=== PATIENT | female | born 1950 | race Caucasian/White ===

== ENCOUNTER 2019-07-04 13:57 | Outpatient (CLI) | payer BC, MEDICARE, SELFPAY ==
[2019-07-04 14:28] LABS: Alanine Aminotransferase 14 U/L (4-35); Albumin Level 4.2 g/dL (3.5-5.1); Alkaline Phosphatase 66 U/L (38-126); Amylase 117 U/L (30-110); Aspartate Amino Transferase 21 U/L (14-36); Bilirubin,Total 0.2 mg/dL (0.2-1.3)
== END 2019-07-04 13:58 | disposition home or self-care (01) ==
LOC: ANHSURGERY 14:01
PROVIDERS: PCP Internal Medicine; Visit Provider Surgery
DX: K80.10 Calculus of gallbladder with chronic cholecystitis without obstruction (principal)
CPT/HCPCS: 36415; 80076; 82150

== ENCOUNTER 2019-07-18 00:34 | Day surgery (SDC) | payer BC, MEDICARE, SELFPAY ==
[2019-06-29 16:17] VITALS: BMI 32.8
[2019-07-18] VITALS (8 sets, daily range): BP systolic 119–152; BP diastolic 48–84; PULSE 60–82; RESP 16–20; TEMP 36.2; O2SAT 100; BMI 33.3
[2019-07-18] MEDS: LACTATED RINGERS 1,000 ML 30 ML IV CONT ×2 (06:30→09:20)
--- NOTE | 2019-07-18 06:54 | PM.HPGS ---
History of Present Illness History of Present Illness Consent: Risks, benefits, and alternatives have been discussed and questions answered. Patient agrees to proceed with procedure. Chief complaint: Cholelithiasis with Cholecystitis Narrative: Khadijah Parsons is a 69 year old female who presented recently to the office for evaluation. She has been experiencing intermittent abdominal discomfort for approximately 20 years. Episodes would wake her in the chart clerk hours, would last about 20 minutes then spontaneously resolve. Recently, she has developed an increase in frequency of episodes, and now has an episode almost once a week. Pain start in mid back and between her shoulder blades, and radiates to her epigastrium. Her first attack, as mentioned, was approximately 20 years ago, and she presented to the ED then with sub sequent resolution of her symptoms. Gallstones were noted on CT that was performed at that time. She was recently admitted to on admitted to the hospital on January 09, 2019, with dizziness. At that time, she was found to be profoundly anemic with hemoccult-positive stool. Endoscopy done at that time showed gastritis and a gastric polyp, which was removed with histology consistent with Nadia's gland nodule. She had been doing well since that time; however, more recently has been increasingly fatigued, occasionally lightheaded, and short of breath with exertion. She had similar symptoms when she was admitted in December and was thought perhaps she was anemic again. She had labs drawn as an outpatient and was told to go to the emergency room on 04/14/2019 due to low hemoglobin and hematocrit. With further questioning while in the hospital, she denied any obvious blood loss and specifically denied epistaxis, hematemesis, hematuria, melena, and hematochezia. Her primary care provider has been wanting her to take some iron supplementation dating back to October of this year. However, she was unaware that she was supposed to take that and in 04/2019 had just started taking a multivitamin with iron in the last couple months. While hospitalized, she was transfused and Hgb increased to 8.6 and discharged on 04/15/2019 in good condition. She has had repeat labs at [facility] since she was discharged, but she can't recall what the results were and we do not have report for review. She has not yet followed up with her PCP, Dr. Freeman Esparza in [place], but is scheduled to see him later this month. She follows him routinely every 6 months, and at her last office visit she admits she he did perform an EKG. While in the hospital, she admitted to the PA that her only other complaint was of occasional gallbladder attacks , the last being sometime in early 04/2019. She has not had fever, chills, or sweats. No chest pain or racing heart. Other abdominal operations include a previous gastric sleeve done a few years ago. After that she lost about 110 lb. She continues to follow-up limited diet. After her visit in the office an ultrasound last month confirmed gallstones. There was no significant wall thickening of the gallbladder. Repeat labs were also done. She has visited with her PCP and obtained medical clearance to proceed with surgery. Review of Systems Constitutional: Constitutional: Reports no additional constitutional complaints, Reports fatigue and Denies malaise Eyes: Eyes: Denies change in vision and Denies loss of vision ENT: Reports Normal hearing present, Denies change in voice, Denies dizziness, Denies hoarseness and Denies sore throat Cardiovascular: Cardiovascular: Denies chest pain, Denies leg edema and Denies dyspnea Comments: Has a history of hypertension. Now off of medications after her weight loss. Respiratory: Respiratory: Denies cough, Denies dyspnea and Denies wheezing Comments: Has a history of sleep apnea. Gastrointestinal: Gastrointestinal: Denies hematochezia, Denies change in bowel habits and Den
--- NOTE | 2019-07-18 07:07 | WPDANESEPPF ---
Anes - Initial Pre Proc Eval Procedure: Operation Date: 07/18/19 07:30 Proposed Procedures p Laparoscopic Cholecystectomy, Possible Intra Operative Cholangiograms, Possible Open - Terrance Bryson MD Date/Time: 07/18/19 07:07 Surgeon: Terrance Bryson MD Pre Op Diagnosis: Cholelithiasis with Cholecystitis Patient Data Age: 69 Gender: F Height: 5 ft 3 in Weight: 83.95 kg Allergies Allergy/AdvReac Type Severity Reaction Status Date / Time Iodinated Contrast Media Allergy Mild Hives Verified 07/18/19 06:30 acetaminophen Allergy Unknown Hives / Verified 07/18/19 06:30 Red Face Home Medications Medication Instructions Recorded Confirmed Type levothyroxine 112 mcg PO DAILY 04/14/19 07/18/19 History ferrous sulfate 324 mg PO BID #60 tablet 04/15/19 07/18/19 Rx Patient hx anesthesia problems: none Family hx anesthesia problems: none PMFSH Past Medical History Medical History Anemia Arthritis DM II (diabetes mellitus, type II), controlled GI bleed History of blood transfusion History of inguinal hernia History of rectal polyps Hypertension Hypothyroidism Sleep apnea Surgical History Surgical History History of inguinal hernia repair Pt stated she never had a hernia repair History of sleeve gastrectomy History of wisdom tooth extraction Family History Family History Sibling Patient's sister is in good health Father Family history of diabetes mellitus in first degree relative Family history of coronary artery disease Mother Family history of coronary artery disease Social History Social History Smoking packs per day: 1 Smoking cigarettes per day: 20.0 Years smoked: 20 Smoking pack-years: 20.00 Smoking status: Former smoker Tobacco type: cigarettes Smoking end date: 06/01/99 Alcohol intake: never Substance use: never Substance use type: does not use Gender identity (if verbalized by the patient): Female Spiritual care concerns: No Agree to blood products: Yes Anes - Eval Final PreProcedure Day of Procedure 07/18/19 07:07 Patient weight: obese Heart: regular rate and rhythm Lungs: clear to auscultation Airway: Mallampati scale class II Neurological: alert and oriented Last oral intake: >/= 8 hours ASA classification: III Emergent: no Anesthetic plan: proceed Anesthesia type and monitoring: general ETT and standard monitoring Informed Consent: The patient's anesthetic plan and its attendant risks and benefits were discussed with the patient/family/POA. Questions were solicited and answers provided to the satisfaction of the patient/family/POA.
[2019-07-18] MEDS: ceFAZolin 2 GM/D5W 50 ML 2 GM/50 ML BAG IVPB (07:33)
[2019-07-18] MEDS: BUPIVACAINE/EPINEPHRINE 0.5% 30 ML VIAL INFILTRATE (07:58)
--- NOTE | 2019-07-18 09:30 | P.OP_ITS ---
Procedure Note - Detailed Date of procedure: 07/18/19 Pre-op diagnosis: Cholelithiasis with Cholecystitis Post-op diagnosis: same Procedure performed: Laparoscopic cholecystectomy Description of procedure: Procedure Details: Patient was seen preoperatively in the holding area and risks, benefits and alternatives confirmed. Patient was taken to the operating room and general anesthesia was induced. A time out was then preformed with the surgery team confirming patient and site of surgery. The abdomen was prepped and draped in the usual sterile fashion. Incision was made just below the umbilicus. Two stay sutures of O- Vicryl were used to elevate the mid-line fascia beneath the umbilicus and a small incision was made under direct vision. The peritoneum was entered. The 12 mm Salomon cannula was introduced under direct vision. First under low flow and then under high flow the abdomen was insufflated with carbon dioxide never exceeding a pressure of 14. Three 5 mm trocars were then introduced under direct vision. The following trocars were introduced under direct vision: a 5 mm in the epigastrium and two 5 mm trocars along the right costal margin. The gall bladder was grasped and the cystic duct and artery were dissected free and clipped with an 5 mm endo-clip programmer engineering and scientific. The window safety was identified prior to placing these clips. Two clips placed on the patient's side of the cystic duct and cystic artery and one on the gallbladder side of each. The cystic duct was then transected. The cystic artery was also transected at this point. The gall bladder was removed using electrocautery and then removed using a large 10 mm grasper via the umbilical incision. The trocars were removed visualizing hemostasis and the remaining gas evacuated. The large trocar site at the umbilicus was closed with a Antoni cone and a 1. Vicryl prior to removing the 5 mm ports. The 2 stay sutures mentioned above on either side of the fascia were also tied together to help approximate this midline fascia. Further local anesthetic was placed into each incision for postop pain control. The skin incisions were closed with a subcuticular of 4-0 Monocryl. Surgical glue then was applied to all the incisions. Patient tolerated the procedure well was taken to the recovery room in good condition. Anesthesia: GETA Surgeon: Terrance Bryson MD Delinquent Tax Collection Assistant: MERARY Mane, OR 1st assist Estimated blood loss (mL): 10 Drains: No Packing: No Pathology: yes (The gallbladder, with a large stone palpable inside it.) Complications: No immediate complications Condition: stable Disposition: PACU Findings: Gallbladder was not inflamed Upon removing the gallbladder was noted that there was about a 2.5-3 cm size stone that seemed to be the only 1 in the gallbladder. The gallbladder was not opened.
== END 2019-07-18 11:28 | disposition home or self-care (01) ==
PROVIDERS: PCP Internal Medicine; Visit Provider Surgery
PROC: 0FT44ZZ Resection of Gallbladder, Percutaneous Endoscopic Approach (ICD-10-PCS; CPT 47562; principal; 2019-07-18 07:30)
DX: K80.10 Calculus of gallbladder with chronic cholecystitis without obstruction (principal); D64.9 Anemia, unspecified; E11.9 Type 2 diabetes mellitus without complications; I10 Essential (primary) hypertension; E03.9 Hypothyroidism, unspecified; G47.30 Sleep apnea, unspecified; Z87.891 Personal history of nicotine dependence; E66.9 Obesity, unspecified; Z68.33 Body mass index [BMI] 33.0-33.9, adult
CPT/HCPCS: 47562; 88304; J0690; J1100; J2250; J2405; J2704; J2710; J3010; J7120

== ENCOUNTER 2020-06-08 12:57 | Emergency (ER) | payer BC, MEDICARE, SELFPAY ==
--- NOTE | ~2020-06-08 | XR_ITS ---
EXAMINATION: [id number] DATE: 06/08/2020 13:38 INDICATION: Left rib pain. TECHNIQUE: A frontal view of the chest and 3 views of the left ribs were obtained. COMPARISON: Chest single view 01/09/2019 FINDINGS: There is mild atelectasis in the lower lung zones. No pleural effusion or pneumothorax. The heart size is normal. Surgical clips in the right upper quadrant are likely from cholecystectomy. Th ere is a fracture deformity of left seventh rib. IMPRESSION: 1. Left seventh rib fracture. Reviewed, dictated and finalized at location A. 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
[2020-06-08 13:18] VITALS: BP 180/80; PULSE 85; RESP 18; TEMP 37; O2SAT 100
--- NOTE | 2020-06-08 13:31 | ED.GENADULT ---
HPI - General Adult General Chief complaint: Unspecified Stated complaint: Left rib pain Time Seen by Provider: 06/08/20 13:22 Source: patient and RN notes reviewed Mode of arrival: ambulatory Limitations: no limitations History of Present Illness HPI narrative: Patient presents today complaining of left lower rib pain. 5/ ago, she leaned over a freestanding freezer at the grocery store and had severe pain to the anterior left rib area. States this pain has been spreading since onset. Significantly increases with movement. Does not increase with coughing or deep breathing. Currently rates her pain 15/10 and has been taking Aleve, which provides approximately 1 to 2 hours of relief. Sitting still also relieves the pain. MD complaint: Rib pain Related Data Home Medications Medication Instructions Recorded Confirmed levothyroxine 112 mcg PO DAILY 04/14/19 07/18/19 Allergies Allergy/AdvReac Type Severity Reaction Status Date / Time Iodinated Contrast Media Allergy Mild Hives Verified 08/03/19 08:25 acetaminophen Allergy Unknown Hives / Verified 08/03/19 08:25 Red Face Review of Systems Review of Systems: Narrative: CONSTITUTIONAL: Denies body aches, fever, chills, or sweats. EYES: Denies visual changes, redness, or discharge. ENT: Denies rhinorrhea, congestion, sore throat, or otalgia. CARDIOVASCULAR: Denies chest pain, palpitations, or edema. RESPIRATORY: Denies cough or dyspnea. GASTROINTESTINAL: Denies abdominal pain, nausea, vomiting, or diarrhea. GENITOURINARY: Denies dysuria or hematuria. SKIN: Denies rash, itching, or wounds. MUSCULOSKELETAL: Denies back pain, joint pain, or myalgia.+ Left rib pain NEUROLOGIC: Denies headache, numbness, tingling, or weakness. PSYCH: Denies depression or anxiety. [facility] Past Medical History Medical History Anemia Arthritis DM II (diabetes mellitus, type II), controlled GI bleed History of blood transfusion History of inguinal hernia History of rectal polyps Hypertension Hypothyroidism (Unknown) Sleep apnea (Unknown) Surgical History Surgical History Chronic cholecystitis with calculus (Unknown) History of inguinal hernia repair Pt stated she never had a hernia repair History of sleeve gastrectomy History of wisdom tooth extraction Family History Family History Sibling Patient's sister is in good health Father Family history of diabetes mellitus in first degree relative Family history of coronary artery disease Mother Family history of coronary artery disease Social History Social History Smoking packs per day: 1 Smoking cigarettes per day: 20.0 Years smoked: 20 Smoking pack-years: 20.00 Smoking status: Former smoker Tobacco type: cigarettes Smoking end date: 06/01/99 Alcohol intake: never Substance use: never Substance use type: does not use Gender identity (if verbalized by the patient): Female Spiritual care concerns: No Agree to blood products: Yes Comments At time of signature, I have reviewed and agree with nursing past medical, surgical, social and family history unless otherwise noted. Please see nursing chart for further information. There is no relevant family history pertinent to the presenting complaint Exam Narrative: Exam Narrative: GENERAL: Well-appearing, well-nourished, and in no acute distress. HEAD: Normocephalic, atraumatic. EYES: EOMI. No redness or drainage. Conjunctivae normal. ENT: Mucous membranes pink and moist. NECK: Normal AROM. CHEST: No respiratory distress. Clear to auscultation. Rib tenderness to the left lower anterior ribs extending laterally and posteriorly. Some crepitus noted anteriorly. No edema or ecchymosis. No deformity noted. [facility]
== END 2020-06-08 13:59 | disposition home or self-care (01) ==
PROVIDERS: Emergency Provider Nurse Practitioner
DX: S22.32XA Fracture of one rib, left side, initial encounter for closed fracture (principal); X50.9XXA Other and unspecified overexertion or strenuous movements or postures, initial encounter; Z87.891 Personal history of nicotine dependence; Z98.84 Bariatric surgery status; M19.90 Unspecified osteoarthritis, unspecified site; E11.9 Type 2 diabetes mellitus without complications; I10 Essential (primary) hypertension; E03.9 Hypothyroidism, unspecified; G47.30 Sleep apnea, unspecified
CPT/HCPCS: 71101; 99213; G0463

== ENCOUNTER 2021-11-21 17:34 | Emergency (ER) | payer BC, MEDICARE, SELFPAY ==
--- NOTE | ~2021-11-21 | CT_ITS ---
EXAMINATION: CT brain wo con INDICATION: Headache COMPARISON: None TECHNIQUE: Standard unenhanced head CT. The dose-length product (DLP) was 605.33 mGy-cm. The mA was a djusted according to patient size. Iterative reconstruction technique was employed. FINDINGS: There is no acute intraparenchymal hemorrhage. No evidence of mass lesion. No evidence of a cute infarction. There is mild periventricular and subcortical hypodensity probably related to small vessel ischemic disease. There is mild prominence of the sulci and ventricles related to cerebral atr ophy. Intracranial calcified cerebral atherosclerosis is noted. There are no extra-axial collections. There is no mass effect or midline shift. The orbits and soft tissues are unremarkable. The visualiz ed sinuses and mastoid air cells are well aerated. IMPRESSION: 1. No acute intracranial abnormality. 2. Age related findings. Reviewed, dictated and finalized at location F.
--- NOTE | ~2021-11-21 | XR_ITS ---
EXAMINATION: XR chest 1V portable INDICATION: Cough and shortness of breath, COVID 19 positive TECHNIQUE: Portable AP chest at 1814 hours COMPARISON: 06/08/2020 FINDINGS: There are mild diffuse interstitial and airspace opacities. No pleural effusion or pneumoth orax. The cardiomediastinal silhouette is normal. IMPRESSION: 1. Diffuse lung disease, consistent with pneumonia versus pulmonary edema. Reviewed, dictated and finalized at location F.
[2021-11-21 17:39] VITALS: BP 120/60; PULSE 109; RESP 20; TEMP 36.9; O2SAT 96
[2021-11-21 17:40] VITALS: BP 120/60; PULSE 99; RESP 20; O2SAT 95
[2021-11-21 17:46] VITALS: BP 115/48; PULSE 102; RESP 21; O2SAT 97
--- NOTE | 2021-11-21 17:52 | ECG_ITS ---
Measurements Intervals [place] Rate: 100 P: 30 MD: 143 QRS: 22 QRSD: 76 T: 42 QT: 329 QTc: 425 Interpretive Statements SINUS TACHYCARDIA EARLY R-WAVE TRANSITION ABNORMAL RHYTHM ECG COMPARED TO ECG 01/09/2019 11:49:04 NO SIGNIFICANT CHANGES Electronically Signed On 11-22-2021 16:37:19 CDT by Silvestre Nielsen M.D.
--- NOTE | 2021-11-21 17:53 | ED.SOB ---
HPI - SOB/Dyspnea General Chief Complaint: Shortness of Breath/Dyspnea Stated Complaint: COVID+, SOB Time Seen by Provider: 11/21/21 17:40 History of Present Illness HPI Narrative: Patient is a 71-year-old female with a history of hypertension and hypothyroidism here for evaluation of shortness of breath and weakness for the past 3 days. Patient states that she started feeling off yesterday, feeling generally weak and tired. Patient woke up this morning feeling somewhat short of breath and having chills which led her to take a home COVID test which resulted positive. Patient presents to the ED due to increased dyspnea. Patient also tells me that she has been having a pain behind her right ear for the past 2 days. The pain is throbbing in nature she has never had a sensation like this before. Denies visual changes, unilateral weakness, slurred speech. She denies chest pain, leg swelling, significant cough. Patient was vaccinated against COVID with 2 doses of the Pfizer vaccine but she has not received her booster. Related Data Home Medications Medication Instructions Recorded Confirmed levothyroxine 112 mcg tablet 112 mcg PO DAILY 04/14/19 07/18/19 Allergies Allergy/AdvReac Type Severity Reaction Status Date / Time Iodinated Contrast Media Allergy Mild Hives Verified 08/03/19 08:25 acetaminophen Allergy Unknown Hives / Verified 08/03/19 08:25 Red Face Review of Systems Review of Systems: Gen: Reports chills and weakness Eyes: Denies eye pain or visual change ENT: Denies congestion Respiratory: Reports dyspnea CV: Denies chest pain or palpitations GI: Denies abdominal pain nausea, emesis or diarrhea : denies burning, urgency, frequency or hematuria Musculoskeletal: Denies back pain or muscle pain Neuro: Denies numbness, tingling, weakness or focal weakness Skin: Denies rash Except as documented, all other systems reviewed and negative [facility] Past Medical History Medical History Anemia Arthritis DM II (diabetes mellitus, type II), controlled GI bleed History of blood transfusion History of inguinal hernia History of rectal polyps Hypertension Hypothyroidism (Unknown) Sleep apnea (Unknown) Surgical History Surgical History Chronic cholecystitis with calculus (Unknown) History of inguinal hernia repair Pt stated she never had a hernia repair History of sleeve gastrectomy History of wisdom tooth extraction Family History Family History Sibling Patient's sister is in good health Father Family history of diabetes mellitus in first degree relative Family history of coronary artery disease Mother Family history of coronary artery disease Social History Social History Smoking packs per day: 1 Smoking cigarettes per day: 20.0 Years smoked: 20 Smoking pack-years: 20.00 Smoking status: Former smoker Tobacco type: cigarettes Smoking end date: 06/01/99 Alcohol intake: never Substance use: never Substance use type: does not use Gender identity (if verbalized by the patient): Female Spiritual care concerns: No Agree to blood products: Yes Exam Narrative: APPEARANCE: Well appearing, no pain in distress, well-nourished. Head: Normocephalic and atraumatic. EYES: PERRLA/EOMI, conjunctivae clear NOSE: No nasal drainage EARS: External ear normal in appearance THROAT: Oropharynx is clear. Mucous membranes are moist. NECK: Supple. No adenopathy, no masses. RESPIRATORY: Speaking in full sentences. Airway patent. Clear to auscultation bilaterally, no rales, rhonchi, wheezing. CARDIOVASCULAR: Regular rate and rhythm without murmurs, rubs, or gallops. ABDOMINAL: Normoactive bowel sounds. Soft, nontender, nondistended. No rebound tenderness or
[2021-11-21 18:01] VITALS: BP 98/60; PULSE 93; RESP 19; O2SAT 95
[2021-11-21 18:07] LABS: Basophils Percent Auto 0.5 % (0.2-1.2); Hematocrit 38.1 % (37.0-47.0); Hemoglobin 12.1 g/dL (12.0-15.0); Immature Granulocyte Absolute 0.03 K/mm3 (0.00-0.031); Immature Granulocyte Percent A 0.7 % (0-0.5); Lymphocytes Absolute Auto 0.81 K/mm3 (0.9-3.2); Mean Corpuscular HGB Conc 31.8 g/dl (32-36); Mean Corpuscular Hemoglobin 28.7 pg (26-34); Mean Corpuscular Volume 90.3 fl (80-100); Monocytes Absolute Auto 0.3 K/mm3 (0.1-0.6); Monocytes Percent Auto 7.7 % (2.6-8.5); Neutrophils Absolute Auto 3.1 K/mm3 (1.3-6.7); Neutrophils Percent Auto 72.1 % (45.5-73.1); Platelet Count Result 132 k/mm3 (150-375); Red Blood Count 4.22 M/mm3 (4.2-5.4); Red Cell Distribution Width 13.2 % (11.5-14.5); White Blood Count 4.3 K/mm3 (4.5-10.0)
[2021-11-21 18:16] VITALS: BP 100/65; PULSE 92; RESP 20; O2SAT 95
[2021-11-21 18:17] LABS: Alanine Aminotransferase 16 U/L (6-35); Albumin Level 4.1 g/dL (3.5-5.1); Alkaline Phosphatase 72 U/L (38-126); Anion Gap 8 mmol/L (8-16); Aspartate Amino Transferase 24 U/L (14-36); Bilirubin,Total 0.3 mg/dL (0.2-1.3); Blood Urea Nitrogen 14 mg/dL (7-17); Calcium 9.1 mg/dL (8.4-10.2); Carbon Dioxide 24 mmol/L (22-30); Chloride 102 mmol/L (98-107); Estimated CRCL calculation 56 ml/min; Estimated Glomerular Filt Rate > 60; Glucose 121 mg/dL (65-110); Potassium 3.9 mmol/L (3.4-5.0); Sodium 134 mmol/L (137-145)
[2021-11-21 18:20] LABS: D Dimer 0.42 ug/mL (<0.48)
[2021-11-21 18:38] LABS: NT Pro B Type Natriuretic Pept 336 pg/mL (5-100); Troponin I < 0.012 ng/mL (0.000-0.034)
[2021-11-21 20:19] VITALS: BP 112/68; PULSE 88; RESP 18; O2SAT 96
== END 2021-11-21 20:20 | disposition home or self-care (01) ==
PROVIDERS: Physician Assistant; Emergency Provider Emergency Medicine; PCP Family Medicine
DX: U07.1 COVID-19 (principal); E11.9 Type 2 diabetes mellitus without complications; I10 Essential (primary) hypertension; E03.9 Hypothyroidism, unspecified; M19.90 Unspecified osteoarthritis, unspecified site; G47.30 Sleep apnea, unspecified; Z87.19 Personal history of other diseases of the digestive system; Z86.2 Personal history of diseases of the blood and blood-forming organs and certain disorders involving the immune mechanism; R00.0 Tachycardia, unspecified; Z87.891 Personal history of nicotine dependence; R91.8 Other nonspecific abnormal finding of lung field
CPT/HCPCS: 36415; 70450; 71045; 80053; 83880; 84484; 85025; 85380; 93005; 99284